=== PATIENT | male | born 1965 | race Caucasian/White ===

== ENCOUNTER 2021-12-20 09:31 | Outpatient (CLI) | payer OTHER, SELFPAY ==
[2021-12-20 14:31] LABS: Chloride* 99 mmol/L (96-114)
[2021-12-20 14:32] LABS: Potassium* 4.8 mmol/L (3.6-5.1); Sodium* 138 mmol/L (135-149)
[2021-12-20 14:34] LABS: Carbon Dioxide* 30 mmol/L (20-32); Creatinine* 0.7 mg/dL (0.5-1.5); Estimated Glomerular Filt Rate 107 ml/min
[2021-12-20 14:35] LABS: Blood Urea Nitrogen* 13 mg/dL (7-30); Calcium* 9.7 mg/dL (8.4-10.6); Glucose* 116 mg/dL (60-115)
== END 2021-12-20 09:32 | disposition home or self-care (01) ==
LOC: FBOREF 09:31
PROVIDERS: PCP Family Medicine; Visit Provider Family Medicine
DX: U07.1 COVID-19 (principal)
CPT/HCPCS: 80048

== ENCOUNTER 2022-06-10 09:43 | Outpatient (CLI) | payer OTHER, SELFPAY ==
[2022-06-10 14:59] LABS: Alanine Aminotransferase* 34 U/L (4-50); Cholesterol* 109 mg/dL (90-199)
[2022-06-10 15:00] LABS: HDL Cholesterol* 36 mg/dL (>=40); LDL Cholesterol Calculated 55 mg/dL (<100); Triglycerides* 92 mg/dL (40-149)
[2022-06-10 15:35] LABS: PSA Screen* 1.62 ng/mL (0.10-4.00)
== END 2022-06-10 09:44 | disposition home or self-care (01) ==
PROVIDERS: PCP Family Medicine; Visit Provider Family Medicine
DX: E78.5 Hyperlipidemia, unspecified (principal); I10 Essential (primary) hypertension; E11.9 Type 2 diabetes mellitus without complications; F41.9 Anxiety disorder, unspecified; Z12.5 Encounter for screening for malignant neoplasm of prostate
CPT/HCPCS: 80061; 84153; 84460

== ENCOUNTER 2023-06-16 09:36 | Outpatient (CLI) | payer OTHER, SELFPAY | END 2023-06-16 09:37 | disposition home or self-care (01) | PROVIDERS: PCP Family Medicine; Visit Provider Family Medicine | DX: Z12.5 Encounter for screening for malignant neoplasm of prostate (principal); E78.5 Hyperlipidemia, unspecified; I10 Essential (primary) hypertension | CPT/HCPCS: 80048; 80061; 84460; G0103 ==

== ENCOUNTER 2024-07-13 10:33 | Outpatient (CLI) | payer BC, SELFPAY | END 2024-07-13 10:34 | disposition home or self-care (01) | PROVIDERS: PCP Family Medicine; Visit Provider Family Medicine | DX: I10 Essential (primary) hypertension (principal); E78.2 Mixed hyperlipidemia; E11.9 Type 2 diabetes mellitus without complications; Z12.5 Encounter for screening for malignant neoplasm of prostate | CPT/HCPCS: 80048; 80061; 84460; G0103 ==

== ENCOUNTER 2024-07-20 08:45 | Outpatient (CLI) | payer BC, SELFPAY ==
--- NOTE | 2024-07-20 09:00 | CRLHL7_ITS ---
For Patients: As a result of the Century Cures Act, medical imaging exams and procedure reports are released immediately into your electronic medical record. You may view this report before your referring provider. If you have questions, please contact your health care provider. INDICATION: Lung cancer screening. Significant smoking history. TECHNIQUE: Low-dose volumetric helical scanning of the thorax was performed without IV contrast material. Coronal and sagittal reconstructions were obtained. COMPARISON: None FINDINGS: A noncalcified 3 mm right upper lobe apical nodule noted image 31 of series 2 and a 2 right lobe apical nodule is demonstrated on image 32. The lungs are clear. There is no significant airway abnormality. No pleural effusion is demonstrated. There is no mediastinal or hilar lymph adenopathy. The heart size is normal. Calcified coronary arterial plaque is demonstrated. Images of the upper abdomen are unremarkable. IMPRESSION: 1. Negative for the purpose of lung cancer screening. Lung-RADS CATEGORY 2: BENIGN APPEARANCE OR BEHAVIOR: Continue annual screening with low-dose chest CT in 12 months. 2. Coronary artery disease. Please note that all CT scans at this facility use dose modulation, iterative reconstruction, and/or weight-based dosing when appropriate to reduce radiation dose to as low as reasonably achievable. Dictated by Bradly Whitaker MD @ 07/21/2024 7:00:07 AM (Electronically Signed)
== END 2024-07-20 08:46 | disposition home or self-care (01) ==
PROVIDERS: PCP Family Medicine; Visit Provider Family Medicine
DX: Z12.2 Encounter for screening for malignant neoplasm of respiratory organs (principal); I25.10 Atherosclerotic heart disease of native coronary artery without angina pectoris; Z87.891 Personal history of nicotine dependence
CPT/HCPCS: 71271